=== PATIENT | female | born 1990 | race Two or more races ===

== ENCOUNTER 2018-08-06 01:07 | Emergency (ER) | payer OTHER ==
[~2018-08-06] VITALS: Ht 162.6 cm; Wt 111.4 kg
[2018-08-06 01:13] VITALS: Ht 162.6 cm; Wt 111.4 kg
--- NOTE | 2018-08-06 06:56 | ERD ---
ER Documentation Chief Complaint Chief Complaint 13WKS PREG-NO FHT?; ABD PAIN, NO BLEEDING; SCHED FOR D&C HPI This is a 28-year-old female who is a . Patient had intrauterine demise diagnosed by her LEASING ASSOCIATE approximately 3 weeks ago. She is now approximately 16 weeks gestation. The patient states that her primary LEASING ASSOCIATE does not perform D&C's. She has been bouncing around to multiple different places to try and find an LEASING ASSOCIATE to perform a D&C. She also describes concomitant URI type symptoms including sore throat, dry nonproductive cough and generalized malaise. She occasionally has some abdominal cramping but no vaginal bleeding. No fevers or chills. The patient presents today because she does not know where else to go for her D&C. ROS All systems reviewed and are negative except as per history of present illness. Medications Home Meds No Active Prescriptions or Reported Meds Allergies Allergies: Coded Allergies: No Known Allergy (Unverified , 08/06/18) PMhx/Soc Medical and Surgical Hx: pt denies Medical Hx FmHx Family History: No diabetes Physical Exam Vitals Vital Signs Date Temp Pulse Resp B/P (MAP) Pulse Ox O2 O2 Flow FiO2 Time Delivery Rate 08/06/18 70 17 107/70 100 Room Air 07:22 (82) 08/06/18 99.2 98 19 149/82 99 01:13 (104) Physical Exam General: Well developed, well nourished, no acute distress Head: Normocephalic, atraumatic. Eyes: Pupils equally reactive, EOM intact ENT: Moist mucous membranes, posterior pharynx without swelling or exudates Neck: Supple, no lymphadenopathy Respiratory: Lungs clear bilaterally, no distress Cardiovascular: RRR, no murmurs, rubs, or gallops Abdominal: Soft, non-tender, non-distended, no peritoneal signs : Deferred MSK: No edema, no unilateral swelling, 5/5 strength Neurologic: Alert and oriented, moving all extremities, normal speech, no focal weakness, no cerebellar signs Skin: No rash Psych: Normal mood Result Diagram: 08/06/18 0642 08/06/18 0642 Results 24 hrs Laboratory Tests Test 08/06/18 06:41 08/06/18 06:42 Urine Color YELLOW Urine Clarity SLIGHTLY CLOUDY Urine pH 6.0 Urine Specific [place] 1.014 Urine Ketones NEGATIVE mg/dL Urine Nitrite NEGATIVE mg/dL Urine Bilirubin NEGATIVE mg/dL Urine Urobilinogen NEGATIVE mg/dL Urine Leukocyte Esterase NEGATIVE [place]/ul Urine Microscopic RBC 2 /HPF Urine Microscopic WBC 2 /HPF Urine Squamous Epithelial Cells FEW /HPF Urine Hemoglobin NEGATIVE mg/dL Urine Glucose NEGATIVE mg/dL Urine Total Protein NEGATIVE mg/dl Beta HCG, Quantitative 2217.2 mIU/ml White Blood Count 7.7 10^3/ul Red Blood Count 3.93 10^6/ul Hemoglobin 11.7 g/dl Hematocrit 36.2 % Mean Corpuscular Volume 92.1 fl Mean Corpuscular Hemoglobin 29.8 pg Mean Corpuscular Hemoglobin Concent 32.3 g/dl Red Cell Distribution Width 13.9 % Platelet Count 229 10^3/UL Mean Platelet Volume 10.6 fl Immature Granulocytes % 1.000 % Neutrophils % 65.0 % Lymphocytes % 22.4 % Monocytes % 8.7 % Eosinophils % 2.5 % Basophils % 0.4 % Nucleated Red Blood Cells % 0.0 /100WBC Immature Granulocytes # 0.080 10^3/ul Neutrophils # 5.0 10^3/ul Lymphocytes # 1.7 10^3/ul Monocytes # 0.7 10^3/ul Eosinophils # 0.2 10^3/ul Basophils # 0.0 10^3/ul Nucleated Red Blood Cells # 0.0 10^3/ul Sodium Level 140 mmol/L Potassium Level 3.9 mmol/L Chloride Level 105 mmol/L Carbon Dioxide Level 23 mmol/L Anion Gap 12 Blood Urea Nitrogen 6 mg/dl Creatinine 0.57 mg/dl Est Glomerular Filtrat Rate mL/min > 60 mL/min Glucose Level 109 mg/dl Calcium Level 9.7 mg/dl [facility] EKG, MONITORS, & DIAGNOSTIC IMAGING: Pelvic ultrasound: IMPRESSION: Single intrauterine with an estimated gestational age of 12 weeks 6 days and no cardiac activity demonstrated consistent with demise. Call report was made to Dr. Smith at time of dictation 0713 hours. RPTAT: [facility] INTERPRETATION: Serum hC Rh status: B + MEDICAL DECISION MAKING: The patient's symptoms are most consistent with acute missed . Patient exhibits no signs or symptoms concerning for complications such as endometritis or bleeding. No evidence of DIC. However, the patient is having extreme difficulty getting this procedure completed. We will check blood work and ultrasound and discussed the case with on-call laborist. Patient was informed that this is not generally an emergent surgery but we will attempt to find her care. Blood pressure with borderline elevation. The patient describes a possible history of hypertension. I do not believe this is consistent with - induced hypertension. ER COURSE: * The patient's laboratory testing shows no evidence of complication. Patient does not require RhoGam. * I was able to speak to Dr. Rachel who covers the patient's clinic. He states that he can see the patient at 10 AM in his office. She does not require emergent admission or emergent D&C at this time. The patient was informed of follow-up today. The patient is frustrated that she cannot receive her D&C today and she was advised of the need for prompt follow-up in the OB office. At this point the patient has no evidence of infection or bleeding that would warrant emergency D&C. The patient was reassured and information was given for clinic visit today. DISPOSITION PLAN: Patient to be discharged to [facility] clinic at 10 AM The patient does not have an identifiable emergent medical condition that warrants inpatient hospitalization at this time. The patient is deemed safe for discharge with outpatient follow-up. We discussed follow up with the patient's primary care doctor within 24 to 48 hours as needed. We also discussed return to the emergency room for worsening symptoms or worsening condition. Outpatient referral: [facility] as above Departure Diagnosis: Primary Impression: Missed Condition: CARMEN Dupont MD Aug 06, 2018 06:56
[2018-08-06 07:22] VITALS: BP 107/70; PULSE 70; RESP 17
== END 2018-08-06 09:00 | disposition left against medical advice (07) ==
LOC: E/R 01:07
DX: O02.1 Missed abortion (principal)
CPT/HCPCS: 36415; 76801; 80048; 81001; 84702; 85025; 86900; 86901; Z7502; 81003